=== PATIENT | female | born 1960 | race Two or more races ===

== ENCOUNTER 2024-05-17 13:53 | Emergency (ER) | payer MEDICAID, OTHER ==
[~2024-05-17] VITALS: Ht 157.5 cm; Wt 76.1 kg
[2024-05-17] MEDS: NITROGLYCERIN 0.4 MG SL TAB SL ONE (15:00)
[2024-05-17 15:51] LABS: Basophils # (auto) 0 10 ^3/uL (0-0.2); Basophils % (auto) 0.6 % (0.0-2.0); Eosinophils # (auto) 0.1 10 ^3/uL (0-0.8); Eosinophils % (auto) 3.2 % (0.0-7.0); Hematocrit 36.8 % (36.0-46.0); Hemoglobin 12.4 g/dL (12.2-16.2); Lymphocytes # (auto) 0.8 10 ^3/uL (0.4-5.4); Lymphocytes % (auto) 27.6 % (10.0-50.0); Mean Corpuscular Hemoglobin 31.4 pg (28.0-32.0); Mean Corpuscular Hgb Conc. 33.6 g/dL (32.0-36.0); Mean Corpuscular Volume 93.4 fL (80.0-100.0); Monocytes # (auto) 0.2 10 ^3/uL (0-1.3); Monocytes % (auto) 7.2 % (0.0-12.0); Neutrophils # (auto) 1.9 10 ^3/uL (1.6-8.6); Neutrophils % (auto) 61.4 % (37.0-80.0); Nucleated Red Blood Cells % 0.3 %; Platelet Count (auto) 185 10^3/uL (140-450); Red Blood Cells 3.94 10^6/uL (4.0-5.20); Red Cell Distribution Width 13.7 % (11.8-14.3)
[2024-05-17 16:15] LABS: Alanine Aminotransferase 15 U/L (7-40); Alkaline Phosphatase 111 U/L (46-116); Anion Gap 8 (5-15); Aspartate Aminotransferase 28 U/L (13-40); BUN/Creatinine Ratio 15.9 (10.0-20.0); Blood Urea Nitrogen 11 mg/dL (9-23); Calcium 9.5 mg/dL (8.7-10.4); Carbon Dioxide 25 mmol/L (20-30); Chloride 104 mmol/L (98-107); Glucose 147 mg/dL (74-106); Magnesium 1.9 mg/dL (1.6-2.6); Potassium 4.9 mmol/L (3.5-5.1); Sodium 137 mmol/L (136-145)
[2024-05-17 16:16] LABS: Bilirubin, Total 0.4 mg/dL (0.2-1.0)
[2024-05-17] MEDS: hydrALAZINE HCL 20 MG/ML VL IV ONE ×2 (19:45→20:00)
[2024-05-17] MEDS: LISINOPRIL 5 MG TAB PO ONE (20:00)
[2024-05-17 21:49] VITALS: BP 135/91; PULSE 92; RESP 15; TEMP 97.9; O2SAT 96
== END 2024-05-17 21:45 | disposition home or self-care (01) ==
LOC: ER 13:53
DX: I16.0 Hypertensive urgency (principal); Z98.890 Other specified postprocedural states
CPT/HCPCS: 36415; 71045; 80053; 83605; 83735; 83880; 84484; 85025; 96374; 99285; J0360